=== PATIENT | female | born 1955 | race Caucasian/White ===

== ENCOUNTER 2023-04-13 11:27 | Inpatient (IN) | payer OTHER ==
[~2023-04-13] VITALS: Ht 160 cm; Wt 68.1 kg
[2023-04-13 11:54] VITALS: BP 117/52
[2023-04-13 12:30] LABS: BASO % 0.5 % (0.0-1.0); EOS # 0.1 10*3/uL (0.0-0.4); EOS % 2.7 % (1.0-4.0); HEMATOCRIT 37.1 % (37.0-47.0); LYMPH # 1.2 10*3/uL (1.3-4.4); LYMPH % 26.7 % (27.0-41.0); MEAN CORPUSCULAR HGB 24.1 pg (27.0-31.0); MEAN CORPUSCULAR HGB CONC 30.2 g/dl (33.0-37.0); MEAN PLATELET VOLUME 10.1 fl (9.6-12.3); MONO # 0.2 10*3/uL (0.1-1.0); MONO % 4.8 % (3.0-9.0); NEUT # 2.9 10*3/uL (2.3-7.9); NEUT % 65.1 % (47.0-73.0); PLATELET COUNT AUTOMATED 210 10*3/uL (130-400); RED BLOOD COUNT 4.64 10*6/uL (4.10-5.10); WHITE BLOOD COUNT 4.4 10*3/uL (4.8-10.8)
[2023-04-13 12:40] LABS: ACT PARTIAL THROMBO TIME 27.8 SECONDS (20.0-32.1)
[2023-04-13 12:50] LABS: ALKALINE PHOSPHATASE 59 U/L (46-116); BUN 6 mg/dl (9-23); CHLORIDE 103 mmol/L (98-107); LIPASE 20 U/L (12-53); POTASSIUM 4.5 mmol/L (3.4-5.1); SGPT/ALT 8 U/L (10-49); TOTAL PROTEIN 5.8 gm/dL (6.0-8.0)
[2023-04-13] MEDS ORDERED: DULOXETINE HCL60 MG PO (15:18)
[2023-04-13] MEDS ORDERED: ATORVASTATIN CA20 M1 PO (15:19)
[2023-04-13] MEDS ORDERED: TRAZODONE150 MG PO (15:20)
[2023-04-13] MEDS ORDERED: XTAMPZA ER18 MG PO (15:21)
[2023-04-13] MEDS ORDERED: ROPINIROLE HYDRO2 M2 PO (15:21)
[2023-04-13] MEDS ORDERED: GABAPENTIN800 MG PO (15:22)
[2023-04-13] MEDS ORDERED: PANTOPRAZOLE SO40 MG PO (15:23)
[2023-04-13] MEDS ORDERED: METFORMIN HYD1000 MG PO (15:24)
[2023-04-13] MEDS ORDERED: OMEPRAZOLE40 MG PO (15:24)
[2023-04-13] MEDS ORDERED: DICLOFENAC SOD75 MG PO (15:25)
[2023-04-13] MEDS ORDERED: PERCOCET 10-321 EACH PO (15:27)
[2023-04-13 15:46] VITALS: BP 113/50
[2023-04-13 16:50] VITALS: BP 112/51
[2023-04-13 20:00] VITALS: BP 118/61
[2023-04-14] VITALS: BP 121/53
[2023-04-14 06:52] LABS: BASO % 0.2 % (0.0-1.0); HEMATOCRIT 36.3 % (37.0-47.0); LYMPH % 22.4 % (27.0-41.0); MEAN CORPUSCULAR HGB 23.1 pg (27.0-31.0); MEAN CORPUSCULAR HGB CONC 28.9 g/dl (33.0-37.0); MEAN PLATELET VOLUME 10.4 fl (9.6-12.3); MONO # 0.3 10*3/uL (0.1-1.0); MONO % 6.9 % (3.0-9.0); NEUT # 3.2 10*3/uL (2.3-7.9); NEUT % 70.3 % (47.0-73.0); PLATELET COUNT AUTOMATED 201 10*3/uL (130-400); RED BLOOD COUNT 4.54 10*6/uL (4.10-5.10); WHITE BLOOD COUNT 4.5 10*3/uL (4.8-10.8)
[2023-04-14 07:19] LABS: ALKALINE PHOSPHATASE 53 U/L (46-116); CHLORIDE 106 mmol/L (98-107); CHOLESTEROL 103 mg/dL (<200); LDL CHOLESTEROL 34 mg/dL (9-159); POTASSIUM 4.9 mmol/L (3.4-5.1); THYROID STIM HORMONE (HS) 1.394 uIU/ml (0.550-4.780); TOTAL PROTEIN 5.6 gm/dL (6.0-8.0); TRIGLYCERIDES 56 mg/dl (<150)
[2023-04-14 07:34] LABS: BUN < 5 mg/dl (9-23); SGPT/ALT < 7 U/L (10-49)
[2023-04-14 07:37] LABS: VITAMIN D, 25-HYDROXY 39.6 ng/mL (30-100)
[2023-04-14 08:00] VITALS: BP 112/84
[2023-04-14 12:00] VITALS: BP 131/69
[2023-04-14 16:00] VITALS: BP 126/59
[2023-04-14 20:00] VITALS: BP 136/48
[2023-04-15] VITALS: BP 131/53
[2023-04-15 06:08] LABS: BUN 5 mg/dl (9-23); CHLORIDE 101 mmol/L (98-107); POTASSIUM 4.1 mmol/L (3.4-5.1)
[2023-04-15 06:10] LABS: BASO % 0.2 % (0.0-1.0); EOS % 0.6 % (1.0-4.0); HEMATOCRIT 34.8 % (37.0-47.0); LYMPH # 2.3 10*3/uL (1.3-4.4); LYMPH % 34.9 % (27.0-41.0); MEAN CELL VOLUME 79.6 fl (81.0-99.0); MEAN CORPUSCULAR HGB 22.9 pg (27.0-31.0); MEAN CORPUSCULAR HGB CONC 28.7 g/dl (33.0-37.0); MONO # 0.3 10*3/uL (0.1-1.0); MONO % 4.7 % (3.0-9.0); NEUT # 3.9 10*3/uL (2.3-7.9); NEUT % 59.3 % (47.0-73.0); PLATELET COUNT AUTOMATED 187 10*3/uL (130-400); RED BLOOD COUNT 4.37 10*6/uL (4.10-5.10); RED CELL DISTRI WIDTH 16.9 % (0-14.5); WHITE BLOOD COUNT 6.5 10*3/uL (4.8-10.8)
[2023-04-15 08:00] VITALS: BP 117/55
[2023-04-15 12:00] VITALS: BP 139/61
[2023-04-15 16:00] VITALS: BP 140/62
[2023-04-15 20:00] VITALS: BP 143/51
[2023-04-16] VITALS: BP 136/46
[2023-04-16 06:37] LABS: HEMATOCRIT 37.8 % (37.0-47.0); LYMPH # 0.9 10*3/uL (1.3-4.4); LYMPH % 16.2 % (27.0-41.0); MEAN CELL VOLUME 79.1 fl (81.0-99.0); MEAN CORPUSCULAR HGB 22.8 pg (27.0-31.0); MEAN CORPUSCULAR HGB CONC 28.8 g/dl (33.0-37.0); MONO # 0.2 10*3/uL (0.1-1.0); MONO % 4.2 % (3.0-9.0); NEUT # 4.4 10*3/uL (2.3-7.9); NEUT % 79.4 % (47.0-73.0); PLATELET COUNT AUTOMATED 196 10*3/uL (130-400); RED BLOOD COUNT 4.78 10*6/uL (4.10-5.10); RED CELL DISTRI WIDTH 16.7 % (0-14.5); WHITE BLOOD COUNT 5.5 10*3/uL (4.8-10.8)
[2023-04-16 06:54] LABS: BUN 7 mg/dl (9-23); CHLORIDE 98 mmol/L (98-107); POTASSIUM 4.3 mmol/L (3.4-5.1)
[2023-04-16 08:00] VITALS: BP 131/60
[2023-04-16] MEDS ORDERED: MUCUS RELIEF600 MG PO (09:55)
[2023-04-16] MEDS ORDERED: PREDNISONE10 MG PO (09:55)
[2023-04-16] MEDS ORDERED: VIBRAMYCIN HYC100 MG PO (09:55)
[2023-04-16] MEDS ORDERED: SYMB80 INH (09:55)
[2023-04-16] MEDS ORDERED: VENTOLIN 02.5 MG/3 M INH (09:55)
[2023-04-16] MEDS ORDERED: VENT7GM INH (09:55)
[2023-04-16 12:00] VITALS: BP 131/63
== END 2023-04-16 12:05 | disposition home or self-care (01) | DRG 189 ==
LOC: ED 11:27 → 5E 13:16 → EDHOLD 13:16 → 5E 16:55
PROVIDERS: Emergency Medicine; Internal Medicine; Student in an Organized Health Care Education/Training Program; ADMIT Internal Medicine; ATTEND Internal Medicine
DX: J96.01 Acute respiratory failure with hypoxia (principal); J44.1 Chronic obstructive pulmonary disease with (acute) exacerbation; D50.9 Iron deficiency anemia, unspecified; E83.42 Hypomagnesemia; Z66 Do not resuscitate; F17.210 Nicotine dependence, cigarettes, uncomplicated; E11.65 Type 2 diabetes mellitus with hyperglycemia; M79.7 Fibromyalgia; G89.4 Chronic pain syndrome; Z71.6 Tobacco abuse counseling; Z90.49 Acquired absence of other specified parts of digestive tract; Z79.1 Long term (current) use of non-steroidal anti-inflammatories (NSAID); Z79.84 Long term (current) use of oral hypoglycemic drugs; Z79.899 Other long term (current) drug therapy